=== PATIENT | female | born 1945 | race Caucasian/White ===

== ENCOUNTER → 2016-09-24 | Outpatient (CLI) | payer MEDICARE | END | disposition home or self-care (01) | LOC: CFH 12:21 | PROVIDERS: ATTEND Internal Medicine Cardiovascular Disease | DX: I48.2 Chronic atrial fibrillation (principal); R05 Cough | CPT/HCPCS: 71020 ==

== ENCOUNTER 2016-11-04 09:09 | Observation (INO) | payer MEDICARE ==
[2016-11-01 14:28] VITALS: BP 139/66
[2016-11-01 14:51] LABS: BLOOD UREA NITROGEN 15 mg/dL (7-18)
[~2016-11-04] VITALS: Ht 162.6 cm; Wt 109.4 kg
[~2016-11-04 09:09] MED LIST: AMLO2.5T PO; ASCO-96 PO; ATOR10TA PO; HYDR25TA6 PO; INSU100V8 SQ; IRON PO; LEVO100T PO; LISI-167 PO; NPH,100I4 SC; OMEP-110 PO; POTA10TA5 PO; SOTA80TA PO; WARF5TAB7 PO
[2016-11-04] MEDS ORDERED: SODIUM CHLORIDE 0.9% 1,000 ML IV SCH (09:19)
[2016-11-04] MEDS ORDERED: CEFAZOLIN PMX 1GM/50ML 50 ML IVPB ONE (09:30)
[2016-11-04] MEDS ORDERED: INSU100C SQ-INSULIN ×3 (10:04)
[2016-11-04] MEDS ORDERED: HUMALOG SQ ×3 (10:09)
[2016-11-04] MEDS ORDERED: CEFAZOLIN PMX 1GM/50ML 50 ML ONE (12:02)
[2016-11-04] MEDS ORDERED: MIDAZOLAM 1 MG/ML, 5ML ONE (12:02)
[2016-11-04] MEDS ORDERED: LIDOCAINE 2%, 20ML ONE (12:02)
[2016-11-04] MEDS ORDERED: CEFAZOLIN 1,000 MG ONE (12:02)
[2016-11-04] MEDS ORDERED: FENTANYL PF 100 MCG/2ML ONE (12:02)
[2016-11-04] MEDS ORDERED: ZOLPIDEM 5MG TABLET PO PRN (13:30)
[2016-11-04] MEDS ORDERED: HYDROcodone/APAP 5/325 TABLET PO PRN (13:30)
[2016-11-04] MEDS ORDERED: INSULIN ASPART 100 UNITS/ML, PEN SQ-INSULIN SCH ×2 (13:30→17:00)
[2016-11-04] MEDS: CEFAZOLIN PMX 1GM/50ML 50 ML IVPB SCH (16:25)
[2016-11-04 19:10] VITALS: BP 127/85
[2016-11-04] MEDS ORDERED: ATORVASTATIN 10 MG TABLET PO SCH (21:00)
[2016-11-04] MEDS ORDERED: INSULIN DETEMIR 100 UNITS/ML, PEN SQ-INSULIN SCH ×2 (21:00)
[2016-11-04] MEDS: LISINOPRIL 10 MG TABLET PO SCH (21:58)
[2016-11-04] MEDS: SOTALOL 80MG TABLET PO SCH (21:58)
[2016-11-04] MEDS: SODIUM CHLORIDE FLUSH 10ML SYR IVF SCH (22:00)
[2016-11-05 00:46] VITALS: BP 123/74
[2016-11-05] MEDS: CEFAZOLIN PMX 1GM/50ML 50 ML IVPB SCH (01:14)
[2016-11-05] MEDS ORDERED: LEVOTHYROXINE 100 MCG TABLET PO SCH (06:00)
[2016-11-05 06:46] VITALS: BP 112/71
[2016-11-05] MEDS: SOTALOL 80MG TABLET PO SCH (07:45)
[2016-11-05] MEDS: LISINOPRIL 10 MG TABLET PO SCH (07:45)
[2016-11-05] MEDS: SODIUM CHLORIDE FLUSH 10ML SYR IVF SCH (07:46)
[2016-11-05] MEDS ORDERED: OMEPRAZOLE 20 MG CAPSULE.DR PO SCH (09:00)
[2016-11-05] MEDS ORDERED: FERROUS SULFATE 325 MG TABLET PO SCH (09:00)
[2016-11-05] MEDS ORDERED: INSULIN ASPART 100 UNITS/ML, PEN SQ-INSULIN SCH ×2 (09:00→17:00)
[2016-11-05] MEDS ORDERED: ASCORBIC ACID 500 MG TABLET PO SCH (09:00)
[2016-11-05] MEDS ORDERED: WARFARIN 5 MG TABLET PO-COUM SCH (09:00)
[2016-11-05] MEDS ORDERED: POTASSIUM CHLORIDE 10 MEQ TABLET.ER PO SCH (09:00)
[2016-11-05] MEDS ORDERED: AMLODIPINE 2.5 MG TABLET PO SCH (09:00)
[2016-11-05] MEDS ORDERED: HYDROCHLOROTHIAZIDE 25 MG TABLET PO SCH (09:00)
== END 2016-11-05 10:01 | disposition home or self-care (01) ==
LOC: CACL 09:09 → ORIP 13:22 → 5SO 13:45 → DCLOUNGE 11-05 09:40
PROVIDERS: ADMIT Internal Medicine Cardiovascular Disease; ATTEND Internal Medicine Cardiovascular Disease
DX: I49.5 Sick sinus syndrome (principal); I48.2 Chronic atrial fibrillation; I10 Essential (primary) hypertension; K21.9 Gastro-esophageal reflux disease without esophagitis; E03.9 Hypothyroidism, unspecified; K74.69 Other cirrhosis of liver; E66.9 Obesity, unspecified; E11.9 Type 2 diabetes mellitus without complications; R60.9 Edema, unspecified; R00.1 Bradycardia, unspecified; G47.30 Sleep apnea, unspecified; E87.6 Hypokalemia
CPT/HCPCS: 33208; 36415; 71010; 71020; 80048; 82962; 85025; 85610; 85730; 93005; 96365; 96372; 96375; C1779; C1785; C1892; G0378; J0690; J1815; J2250; J3010; J3490

== ENCOUNTER 2017-05-09 06:19 | Day surgery (SDC) | payer MEDICARE ==
[2017-05-07 12:07] LABS: BLOOD UREA NITROGEN 19 mg/dL (7-18)
[2017-05-07 12:17] LABS: HEMATOCRIT 41.2 % (34.6-47.8); WHITE BLOOD COUNT 4.9 x10^3/uL (3.4-10)
[~2017-05-09] VITALS: Ht 160 cm; Wt 100.0 kg
[~2017-05-09 06:19] MED LIST changes: +FERR-46 PO; +HUMALOG SQ; +INSU100C SQ-INSULIN; +INSU100I11 SC; +INSU200I SC; +LACT10SO28 PO
[2017-05-09] MEDS ORDERED: FENTANYL PF 100 MCG/2ML ONE (07:32)
[2017-05-09] MEDS ORDERED: LIDOCAINE 2%, 20ML ONE (07:32)
[2017-05-09] MEDS ORDERED: MIDAZOLAM 1 MG/ML, 5ML ONE (07:32)
== END 2017-05-09 11:10 ==
LOC: CACL 06:19
PROVIDERS: ATTEND Internal Medicine Cardiovascular Disease
DX: R07.9 Chest pain, unspecified (principal); E11.9 Type 2 diabetes mellitus without complications; I10 Essential (primary) hypertension; Z79.4 Long term (current) use of insulin; E78.00 Pure hypercholesterolemia, unspecified; E03.9 Hypothyroidism, unspecified
CPT/HCPCS: 36415; 80048; 82962; 85025; 85610; 85730; 93458; 99156; 99157; C1760; C1769; C1894; J2250; J3010; J3490; Q9967